=== PATIENT | male | born 1945 | race Caucasian/White ===

== ENCOUNTER 2020-07-02 04:12 | Emergency (ER) | payer MEDICARE, SELFPAY ==
[2020-07-02 04:25] VITALS: BP 165/89; PULSE 75; RESP 25; TEMP 36.9; O2SAT 96; BMI 26.4
--- NOTE | 2020-07-02 04:41 | DI.RAD.S_ITS ---
PROCEDURE: XR CHEST 2V INDICATIONS: shortness of breath TECHNIQUE: 2 views of the chest were acquired. COMPARISON: None. FINDINGS: Surgical changes and devices: Pacemaker, midline sternotomy. Lungs and pleura: Interstitial pulmonary edema. Blunting of left lateral costophrenic angle. Mediastinum: Mediastinal contours are normal. Moderate to marked cardiomegaly. Bones and chest wall: No suspicious bony abnormalities. Soft tissues appear unremarkable. IMPRESSION: Congestive heart failure exacerbation. Comment: Final report is concordant with preliminary interpretation provided by [facility]. Dictated by: Victor Hugo Grace M.D. on 07/02/2020 at 7:53 Approved by: Victor Hugo Grace M.D. on 07/02/2020 at 7:54
[2020-07-02 04:57] LABS: COVID19 -Nasal RAPID Negative (Negative)
[2020-07-02] MEDS: ALBUTEROL 2.5 MG/3 ML NEB (ADULT) INH (05:02)
[2020-07-02 05:06] VITALS: PULSE 70; RESP 24; O2SAT 99
--- NOTE | 2020-07-02 05:32 | ED.SOB ---
HPI - SOB/Dyspnea General Chief Complaint: Shortness of Breath/Dyspnea Stated Complaint: difficulty breathing, cold sweat Time Seen by Provider: 07/02/20 05:31 Source: patient Mode of arrival: Wheelchair History of Present Illness HPI Narrative: 74-year-old gentleman with a history of coronary artery disease post bypass surgery and stenting, congestive heart failure, hyperlipidemia hypertension drove 2 and half days to come visit grandchildren here in [place]. In her 1st morning he woke up approximately an hour prior to arrival significantly dyspneic diaphoretic and generally feeling unwell. He initially thought it was anxiety however with the mild diaphoresis his convinced him to come to the emergency department for further evaluation. He has had previous similar episodes some of which have resulted in coronary interventions none of these have been for a number of years. He is scheduled for a cardiac echo in the near future. He notes that he has been taking all of his medications as prescribed. Has had no increase in orthopnea or lower extremity edema. He has not noticed any unilateral edema, fevers, productive cough, palpitations, chest pain, headaches or acute neurologic findings. Related Data Previous Rx's Medication Instructions Recorded azithromycin See Rx Instructions .ROUTE 07/02/20 .COMPLEX #6 tab Allergies Allergy/AdvReac Type Severity Reaction Status Date / Time No Known Drug Allergies Allergy Verified 07/02/20 04:27 Review of Systems Review of Systems Narrative: Remainder of review of systems including constitutional, ENT, cardiovascular, respiratory, GI, , musculoskeletal, skin, neurologic and psychiatric systems reviewed and are unremarkable except as noted in HPI. Patient History Medical History ASCVD (arteriosclerotic cardiovascular disease) Congestive heart failure COPD (chronic obstructive pulmonary disease) Hyperlipidemia Hypertension Surgical History Hx of CABG Social History Smoking Status: Current every day smoker Smoking Status: Current every day smoker Exam Narrative Exam Narrative: General: in no acute distress. Able to give a complete and coherent history. HEENT: Moist mucous membranes, normal sclera with reactive pupils, Neck: No JVD, supple Respiratory: Lungs mild bibasilar rales, no consolidate dated findings, no accessory muscle use no wheezing and Full and symmetrical air movement Cardiac: Regular rate and rhythm no murmurs no bruits Abdomen: Soft, nontender, good bowel tones, no flank pain Skin: Warm and dry, deeply tanned with significant sun damage Neurologic: Grossly neurologically intact with no obvious asymmetries or abnormalities Extremities: No trauma, well perfused, no lower extremity edema no asymmetric swelling Psych: Cooperative, appropriate insight and affect Initial Vital Signs Initial Vital Signs: Vital Signs Temperature 98.5 F 07/02/20 04:25 Pulse Rate 75 07/02/20 04:25 Respiratory Rate 25 H 07/02/20 04:25 Blood Pressure 165/89 H 07/02/20 04:25 Pulse Oximetry 96 07/02/20 04:25 Course Orders Ordered: Discontinued Medications Albuterol (Albuterol 2.5 Mg/3 Ml Neb (Adult)) 2.5 mg INH NOW ONE Stop: 07/02/20 05:00 Last Admin: 07/02/20 05:02 Dose: 2.5 mg Documented by: SHANICE Furosemide (Furosemide 100 Mg/10 Ml Vial) 80 mg IV NOW ONE Stop: 07/02/20 05:41 Last Admin: 07/02/20 06:03 Dose: 80 mg Documented by: CHARLIE Ceftriaxone Sodium/Dextrose (Rocephin) 2 gm in 50 mls @ 100 mls/hr IV NOW ONE Stop: 07/02/20 07:26 Last Infusion: 07/02/20 09:03 Dose: 0 mls/hr Documented by: Admin: 07/02/20 08:29 Dose: 100 mls/hr Documented by: AMARILYS Azithromycin 500 mg/ Dextrose 250 mls @ 250 mls/hr IV NOW ONE Stop: 07/02/20 06:58 Last Infusion: 07/02/20 09:03 Dose: 0 mls/hr Documented by: Admin: 07/02/20 07:17 Dose: 250 mls/hr Documented by: AMARILYS Vital Signs Vital signs: Vital Signs - 8 hr 07/02/20 04:25 07/02/20 05:06 07/02/20 06:12 Temperature 98.5 F Pulse Rate 75 70 74 Respiratory Rate 25 H 24 22 Blood Pressure 165/89 H 165/89 H Pulse Oximetry 96 99 96 MDM - SOB/Dyspnea Medical Records Attestation: I reviewed the patient's medical records. Lab Data Attestation: I reviewed the patient's lab results. Result diagrams: 07/02/20 05:25 07/02/20 05:25 Labs: Lab Results 07/02/20 07/02/20 07/02/20 Range/Units 04:20 05:25 05:25 WBC 13.9 H (4.5-11.0) X10^3/uL RBC 3.93 L (4.5-5.9) X10^6/uL Hgb 12.8 L (13.5-17.5) g/dL Hct 38.1 L (41-53) % MCV 97.0 (80-100) fL MCH 32.4 (26-34) PG MCHC 33.5 (30-36) % RDW 14.5 (11.6-14.8) % Plt Count 238 (150-400) X10^3/uL Neut % (Auto) 81.5 H (50-75) % Lymph % (Auto) 9.3 L (25-40) % [place] % (Auto) 6.0 (3-14) % Eos % (Auto) 2.1 (2-4) % Baso % (Auto) 1.1 (0-2) % Neut # (Auto) 32443 H (3129-8247) /uL Lymph # (Auto) 1300 (7109-0508) /uL [place] # (Auto) 800 (0-900) /uL Eos # (Auto) 300 (0-450) /uL Baso # (Auto) 200 H (0-100) /uL D-Dimer (<230) ng/mL Sodium 139 (137-145) mmol/L Potassium 4.8 (3.4-5.1) mmol/L Chloride 107 (98-107) mmol/L Carbon Dioxide 27 (22-32) mmol/L BUN 20 (9-20) mg/dL Creatinine 1.43 H (0.66-1.25) mg/dL Estimated GFR 48.2 L (>60) mL/min BUN/Creatinine Ratio 14.0 (6-22) Glucose 191 H (80-110) mg/dL Lactate (0.7-2.1) mmol/L Calcium 9.0 (8.4-10.2) mg/dL Total Bilirubin 0.5 (0.2-1.3) mg/dL AST 22 (17-59) IU/L ALT 15 (<50) IU/L Alkaline Phosphatase 80 (38-126) U/L Total Protein 7.5 (6.3-8.2) g/dL Albumin 4.2 (3.5-5.0) g/dL Globulin 3.3 (1.7-4.1) g/dL Albumin/Globulin Ratio 1.3 (1.0-2.8) SARS-CoV-2 (PCR) Negative (Negative) 07/02/20 07/02/20 Range/Units 05:25 05:25 WBC (4.5-11.0) X10^3/uL RBC (4.5-5.9) X10^6/uL Hgb (13.5-17.5) g/dL Hct (41-53) % MCV (80-100) fL MCH (26-34) PG MCHC (30-36) % RDW (11.6-14.8) % Plt Count (150-400) X10^3/uL Neut % (Auto) (50-75) % Lymph % (Auto) (25-40) % [place] % (Auto) (3-14) % Eos % (Auto) (2-4) % Baso % (Auto) (0-2) % Neut # (Auto) (0309-9202) /uL Lymph # (Auto) (8253-8749) /uL [place] # (Auto) (0-900) /uL Eos # (Auto) (0-450) /uL Baso # (Auto) (0-100) /uL D-Dimer 229 (<230) ng/mL Sodium (137-145) mmol/L Potassium (3.4-5.1) mmol/L Chloride (98-107) mmol/L Carbon Dioxide (22-32) mmol/L BUN (9-20) mg/dL Creatinine (0.66-1.25) mg/dL Estimated GFR (>60) mL/min BUN/Creatinine Ratio (6-22) Glucose (80-110) mg/dL Lactate 1.1 (0.7-2.1) mmol/L Calcium (8.4-10.2) mg/dL Total Bilirubin (0.2-1.3) mg/dL AST (17-59) IU/L ALT (<50) IU/L Alkaline Phosphatase (38-126) U/L Total Protein (6.3-8.2) g/dL Albumin (3.5-5.0) g/dL Globulin (1.7-4.1) g/dL Albumin/Globulin Ratio (1.0-2.8) SARS-CoV-2 (PCR) (Negative) Imaging Data Chest x-ray: Attestation: I personally reviewed and interpreted this imaging study as follows: My Impression: Concern for developing right-sided pneumonia as well Radiologist's Impression: Findings most consistent with congestive heart failure versus fluid overload, cardiomegaly Luh Bradley MD ECG Data Interpretation: Rate of 75 AV dual paced rhythm MDM Narrative Medical decision making narrative: 74-year-old gentleman presents with slight increase in dyspnea. No evidence of pulmonary embolism, acute coronary disease for sepsis. He does have a mild amount of congestive heart failure notes that he has not been taking his Lasix as regularly as he has been traveling these last 3 days. Oxygen saturations are 98% on room air after a dose of IV Lasix. Slightly elevated white blood cell count and review of chest x-ray suggests possibility of a developing pneumonia in the right upper lobe. He is given ceftriaxone and azithromycin in the emergency department and will be discharged home with additional azithromycin. He is not having significant wheezing I do not think steroids are indicated. He will continue his inhalers at home. He is at this point, safe for home discharge and I have encouraged him to return should he have worsening symptoms. Discharge Plan Departure Patient Disposition: Home Clinical Impression: Congestive heart failure Qualifiers: Heart failure type: unspecified Heart failure chronicity: acute on chronic Qualified Code(s): I50.9 - Heart failure, unspecified Community acquired pneumonia Qualifiers: Laterality: right Lung location: upper lobe of lung Qualified Code(s): J18.9 - Pneumonia, unspecified organism COPD (chronic obstructive pulmonary disease) Qualifiers: COPD type: chronic bronchitis Chronic bronchitis type: simple Qualified Code(s): J41.0 - Simple chronic bronchitis Instructions: DI for Heart Failure, DI for Pneumonia -- Adult Activity Restrictions/Additional Instructions: Thank you for coming in today It looks like you have a mild exacerbation of your congestive heart failure. I am going to suggest that you be very vigilant about taking your medication twice a day as prescribed for at least the next 3 days. You responded nicely to the IV Lasix in the emergency department Move it concerned that your developing a pneumonia in the right upper lobe of your lung. Please complete the course of azithromycin. At this time you do not appear to be having significant wheezing I do not think that you need steroids however I do want you to continue to use your inhalers as prescribed I found no evidence for blood clots in your lungs, collapsed lungs or heart injury or heart attack type syndromes. If you have worsening symptoms please feel free to return to the emergency department. I hope that you have the opportunity to fully enjoy your grand children with your visit here. Prescriptions: New azithromycin 250 mg tablet See Rx Instructions .ROUTE .COMPLEX Qty: 6 RF: 0
[2020-07-02 05:41] LABS: Add Manual Diff / Slide Review NO; Basophils Absolute Auto 200 /uL (0-100); Basophils Percent Auto 1.1 % (0-2); Eosinophils Absolute Auto 300 /uL (0-450); Eosinophils Percent Auto 2.1 % (2-4); Hematocrit 38.1 % (41-53); Hemoglobin 12.8 g/dL (13.5-17.5); Lymphocytes Absolute Auto 1300 /uL (1100-4500); Lymphocytes Percent Auto 9.3 % (25-40); Mean Corpuscular HGB Conc 33.5 % (30-36); Mean Corpuscular Hemoglobin 32.4 PG (26-34); Monocytes Absolute Auto 800 /uL (0-900); Neutrophils Absolute Auto 11300 /uL (1500-7000); Neutrophils Percent Auto 81.5 % (50-75); Platelet Count 238 X10^3/uL (150-400); Red Blood Cell Count 3.93 X10^6/uL (4.5-5.9); Red Cell Distribution Width 14.5 % (11.6-14.8); White Blood Cell Count 13.9 X10^3/uL (4.5-11.0)
[2020-07-02 05:55] LABS: Lactate (Lactic Acid) 1.1 mmol/L (0.7-2.1)
[2020-07-02 05:56] LABS: Alanine Aminotransferase 15 IU/L (<50); Albumin 4.2 g/dL (3.5-5.0); Albumin Globulin Ratio 1.3 (1.0-2.8); Alkaline Phosphatase 80 U/L (38-126); Aspartate Aminotransferase 22 IU/L (17-59); Bilirubin Total 0.5 mg/dL (0.2-1.3); Blood Urea Nitrogen 20 mg/dL (9-20); Carbon Dioxide 27 mmol/L (22-32); Chloride 107 mmol/L (98-107); Estimated Glomerular Filt Rate 48.2 mL/min (>60); Globulin 3.3 g/dL (1.7-4.1); Glucose 191 mg/dL (80-110); HEMOLYSIS < 15 (0-50); Potassium 4.8 mmol/L (3.4-5.1); Sodium 139 mmol/L (137-145); Total Protein 7.5 g/dL (6.3-8.2)
[2020-07-02] MEDS: FUROSEMIDE 100 MG/10 ML VIAL 80 MG IV (06:03)
[2020-07-02 06:12] VITALS: BP 165/89; PULSE 74; RESP 22; O2SAT 96
[2020-07-02 06:57] LABS: D Dimer 229 ng/mL (<230)
[2020-07-02] MEDS: AZITHROMYCIN 500 MG in DEXTROSE 5% IN WATER 250 ML IV (07:17)
[2020-07-02 08:10] VITALS: PULSE 74; RESP 20; O2SAT 97
[2020-07-02] MEDS: CEFTRIAXONE 2 GM/50 ML FROZ.PIGGY IV (08:29)
[2020-07-02 08:30] VITALS: PULSE 74; RESP 23; O2SAT 99
== END 2020-07-02 09:03 | disposition home or self-care (01) ==
PROVIDERS: Emergency Provider Emergency Medicine
DX: I50.9 Heart failure, unspecified (principal); J18.9 Pneumonia, unspecified organism; J41.0 Simple chronic bronchitis; Z20.822 Contact with and (suspected) exposure to COVID-19
CPT/HCPCS: 36415; 71046; 80053; 83605; 85025; 85379; 87635; 93005; 94640; 96365; 96366; 96368; 96375; 99284; 99285; C9803; J0696; J1940; J7613